=== PATIENT | male | born 1990 | race Caucasian/White ===

== ENCOUNTER 2016-02-25 19:48 | Emergency (ER) | payer OTHER ==
[~2016-02-25] VITALS: Ht 175.3 cm; Wt 85.0 kg
[~2016-02-25 19:48] MED LIST: AMOXICILLIN500 M1 PO; CIPRO500 MG PO; FLEXERIL10 MG PO; FLOMAX0.4 MG PO; MOTRIN800 MG PO; NAPROXEN500 MG PO; NORCO 5/3251 TABLET PO; OXAYDO5 MG PO; PERCOCET 5/31 TABLET PO; ZOFRAN8 MG PO
[2016-02-25 20:10] LABS: HEMATOCRIT 44.4 % (38.0-50.0); MCHC 35.8 G/DL (30.0-36.0); MCV 86.5 FL (86-99); MEAN PLAT.VOLUME 12.5 uM^3 (9.0-12.4); PLATELET COUNT 154 K/uL (156-360); RBC DIS.WIDTH-CV 12.3 % (11.8-14.6); RBC DIS.WIDTH-SD 38.5 % (39-53); RED BLOOD COUNT 5.13 M/uL (4.00-5.50); WHITE BLOOD COUNT 10.1 K/uL (4.1-10.2)
[2016-02-25 20:27] LABS: CHLORIDE 109 mEq/L (99-109); SODIUM 141 mEq/L (136-147)
[2016-02-25 20:28] LABS: GLUCOSE 118 mg/dL (70-99)
[2016-02-25 20:30] LABS: ANION GAP 10 MEQ/L (2-14)
[2016-02-25 20:32] LABS: GFR ESTIMATE (CALCULATED) > 59 mL/min/
[2016-02-25 20:33] LABS: UREA NITROGEN (BUN) 10 mg/dL (9-23)
[2016-02-25 21:46] LABS: ADD MIUA? NO; BILIRUBIN NEGATIVE; BLOOD NEGATIVE; COLOR YELLOW ((YELLOW)); GLUCOSE (STRIP) NEGATIVE; KETONES NEGATIVE; LEUKOCYTES NEGATIVE; NITRITE NEGATIVE; PH, URINE 6.5 (5-8); PROTEIN (STRIP) NEGATIVE; SPECIFIC GRAVITY 1.024 (1.000-1.030); UCUL ADDED? NO; UROBILINOGEN 0.2 MG/DL (0.2-1.0)
[2016-02-25] MEDS ORDERED: NORCO 5/3251 TABLET PO (23:34)
[2016-02-25] MEDS ORDERED: FLOMAX0.4 MG PO (23:34)
[2016-02-25] MEDS ORDERED: URIBEL CAPSULE1 EACH PO (23:34)
[2016-02-25 23:46] VITALS: BP 125/74
== END 2016-02-25 23:47 | disposition home or self-care (01) ==
LOC: EME 19:48 → RME 19:48
DX: R39.15 Urgency of urination (principal); Z87.442 Personal history of urinary calculi
CPT/HCPCS: 74176; 80048; 81003; 85027; 99281; 99285